=== PATIENT | female | born 1990 | race Caucasian/White ===

== ENCOUNTER → 2024-07-12 | Day surgery (SDC) | payer BC ==
[~2024-07-12] VITALS: Ht 175.2 cm; Wt 122.5 kg
[~2024-07-12] MED LIST: DOXYCYCLINE MO100 MG PO; Dexamethasone Sodium Phospha 4 MG/ML VIAL IV ONE; GLYCOPYRROLATE IN WATER/PF 0.4 MG/2 ML SYRINGE IV ONE; Ketamine Hydrochloride 500 MG/10 ML VIAL IV ONE; Ketorolac Tromethamine 30 MG/ML VIAL IV ONE; Lactated Ringer's Solution 1,000 ML IV ONE; Lidocaine Hydrochloride 5 ML VIAL IV ONE; Midazolam Hydrochloride 2 MG/2 ML VIAL IV ONE; Ondansetron Hydrochloride 4 MG/2 ML VIAL IV ONE; PROPOFOL 200 MG/20 ML VIAL IV ONE; ROCURONIUM BROMIDE 50 MG/5 ML SYRINGE IV ONE; SUGAMMADEX SODIUM 200 MG/2 ML VIAL IV ONE; Scopolamine 1 PATCH PATCH T ONE; TRAMADOL HCL50 MG PO; ZITHROMAX Z PA250 MG PO; fentaNYL CITRATE 100 MCG/2 ML VIAL IV ONE
[2024-07-12 06:25] VITALS: BP 129/79
[2024-07-12 08:40] VITALS: BP 100/64
[2024-07-12 08:55] VITALS: BP 114/69
[2024-07-12 09:10] VITALS: BP 124/68
[2024-07-12 09:25] VITALS: BP 118/76
[2024-07-12 09:40] VITALS: BP 122/77
== END | disposition home or self-care (01) ==
LOC: SDC 07-08 08:00
PROVIDERS: ATTEND Obstetrics & Gynecology
DX: Z30.2 Encounter for sterilization (principal); F10.90 Alcohol use, unspecified, uncomplicated; Z87.891 Personal history of nicotine dependence; Z98.890 Other specified postprocedural states